=== PATIENT | male | born 1970 | race African-American/Black ===

== ENCOUNTER 2016-03-01 15:17 | Emergency (ER) | payer BC ==
[~2016-03-01] VITALS: Ht 175.3 cm; Wt 95.0 kg
[~2016-03-01 15:17] MED LIST: DILT120C49 PO; LISI-360 PO
[2016-03-01 15:21] VITALS: BP 235/126; PULSE 76; RESP 18; TEMP 98.4; O2SAT 98
[2016-03-01 15:31] VITALS: BP 221/120; PULSE 77
--- NOTE | 2016-03-01 15:50 | PD ---
HPI Chief Complaint: Hypertension Stated Complaint: POSS HIGH BLOOD PRESSURE Time Seen by Provider: 15:50 Travel History International Travel<30 days: No Contact w/Intl Traveler<30days: No Known affected area: No History of Present Illness HPI 45-year-old male with history of hypertension, presents to emergency department for evaluation of persistent hypertension, higher than usual with associated headache. Headache has been intermittent over the last couple weeks. Patient states he typically does get headache with his blood pressure is elevated. Patient is followed by IVETH Gruber and was on lisinopril and losartan. Now he takes losartan 100 mg by mouth for his blood pressure. Patient states he's been taking this as directed. He is in the process of finding a new medical provider. He states he does have an appointment with Dr. Campbell. Patient denies any other focal deficits or weakness. No chest pain or tightness. No difficulty breathing. He has no visual changes or disturbances. He has no other symptoms report. History Social History Alcohol Use: No Tobacco Use: No Allergies-Medications (Allergen,Severity, Reaction): Coded Allergies: No Known Allergies (Unverified , 09/22/14) Reported Meds & Prescriptions Reported Meds & Active Scripts Active Norvasc (Amlodipine Besylate) 5 Mg Tab 5 Mg PO DAILY Lisinopril 10 mg (Lisinopril) 10 Mg Tab 1 Tab PO DAILY Reported Diltiazem Cd 120 mg 120 Mg Cap 120 Mg PO BID Review of Systems Except as stated in HPI: all other systems reviewed are Neg Physical Exam Narrative GENERAL: Well-nourished well-developed male patient, ambulatory no acute distress SKIN: Warm and dry. HEAD: Atraumatic. Normocephalic. EYES: Pupils equal and round. No scleral icterus. No injection or drainage. ENT: No nasal bleeding or discharge. Mucous membranes pink and moist. NECK: Trachea midline. No JVD. CARDIOVASCULAR: Regular rate and rhythm. No murmur appreciated. RESPIRATORY: No accessory muscle use. Clear to auscultation. Breath sounds equal bilaterally. GASTROINTESTINAL: Abdomen soft, non-tender, nondistended. Hepatic and splenic margins not palpable. MUSCULOSKELETAL: No obvious deformities. No clubbing. No cyanosis. No edema. NEUROLOGICAL: Awake and alert. No obvious cranial nerve deficits. Motor grossly within normal limits. Normal speech. PSYCHIATRIC: Appropriate mood and affect; insight and judgment normal. Data Data Last Documented VS Vital Signs Date Time Temp Pulse Resp B/P Pulse Ox O2 Delivery O2 Flow Rate FiO2 03/01/16 18:27 80 20 168/102 99 03/01/16 15:21 98.4 Room Air Orders Complete Blood Count With Diff (03/01/16 15:51) Basic Metabolic Panel (Bmp) (03/01/16 15:51) Ct Brain W/O Iv Contrast(Rout) (03/01/16 ) Clonidine (Catapres) (03/01/16 17:00) Electrocardiogram (03/01/16 16:17) Labs Laboratory Tests Test 03/01/16 16:00 White Blood Count 5.2 TH/MM3 Red Blood Count 4.40 MIL/MM3 Hemoglobin 13.8 GM/DL Hematocrit 40.1 % Mean Corpuscular Volume 91.2 FL Mean Corpuscular Hemoglobin 31.3 PG Mean Corpuscular Hemoglobin 34.3 % Concent Red Cell Distribution Width 12.2 % Platelet Count 152 TH/MM3 Mean Platelet Volume 11.8 FL Neutrophils (%) (Auto) 50.6 % Lymphocytes (%) (Auto) 36.0 % Monocytes (%) (Auto) 6.4 % Eosinophils (%) (Auto) 5.9 % Basophils (%) (Auto) 1.1 % Neutrophils # (Auto) 2.7 TH/MM3 Lymphocytes # (Auto) 1.9 TH/MM3 Monocytes # (Auto) 0.3 TH/MM3 Eosinophils # (Auto) 0.3 TH/MM3 Basophils # (Auto) 0.1 TH/MM3 CBC Comment AUTO DIFF Differential Comment AUTO DIFF CONFIRMED Platelet Estimate NORMAL Platelet Morphology Comment ENLARGED Sodium Level 138 MEQ/L Potassium Level 4.0 MEQ/L Chloride Level 103 MEQ/L Carbon Dioxide Level 27.3 MEQ/L Anion Gap 8 MEQ/L Blood Urea Nitrogen 18 MG/DL Creatinine 1.24 MG/DL Estimat Glomerular Filtration 77 ML/MIN Rate Random Glucose 84 MG/DL Calcium Level 8.5 MG/DL [facility] Medical Decision Making Medical Screen Exam Complete: Yes Emergency Medical Condition: Yes Medical Record Reviewed: Yes Differential Diagnosis Hypertension essential versus secondary versus hypertensive urgency versus hypertensive crisis versus intracranial hemorrhage versus vasospasm versus migraine Narrative Course 45-year-old male presents to emergency department for evaluation of hypertension. Workup was initiated in triage. Lab work has resulted with no acute abnormality. Patient is still in triage. Review of his chart, he has been given clonidine 0.2 mg in the past with improvement in his blood pressure and symptoms. This is given to the patient. Upon reassessment, blood pressure has reduced and patient is verbalizing marked improvement in symptoms. Discussed the patient Dr. Chambers, and changing position. He recommends starting the patient on Norvasc and to follow-up with primary care provider. Patient agrees this plan of care. In review of chart, patient is also on lisinopril. I have instructed him to not take this however he states that he no longer takes it and only takes losartan. Diagnosis Primary Impression: Hypertension Qualified Code: I10 - Essential hypertension Referrals: Primary Care Physician Patient Instructions: General Instructions, Hypertension (ED) Additional Instructions: Follow-up with primary care provider Return immediately with any acute worsening of symptoms Med/Other Pt SpecificInfo: Prescription(s) given Scripts Amlodipine (Norvasc)5 Mg Tab5 Mg PO DAILY #30 TAB Ref 0 Prov:Missy Pelletier 03/01/16 Disposition: 01 DISCHARGE HOME Condition: Stable Missy Pelletier Mar 01, 2016 15:50
[2016-03-01 16:21] LABS: AUTOMATED NEUTROPHIL # 2.7 TH/MM3 (1.8-7.7); BASOPHIL # 0.1 TH/MM3 (0-0.2); BASOPHIL % 1.1 % (0.0-2.0); EOSINOPHIL # 0.3 TH/MM3 (0-0.4); EOSINOPHIL % 5.9 % (0.0-4.0); HEMATOCRIT 40.1 % (39.0-51.0); LYMPHOCYTE # 1.9 TH/MM3 (1.0-4.8); MEAN CELL VOLUME 91.2 FL (80.0-100.0); MEAN CORPUSCULAR HEMOGLOBIN 31.3 PG (27.0-34.0); MEAN CORPUSCULAR HGB CONC 34.3 % (32.0-36.0); MONO % 6.4 % (0.0-8.0); NEUT % 50.6 % (16.0-70.0); PLATELET COUNT 152 TH/MM3 (150-450); RED CELL DISTRIBUTION WIDTH 12.2 % (11.6-17.2); WHITE BLOOD COUNT 5.2 TH/MM3 (4.0-11.0)
[2016-03-01 16:27] LABS: HEMO FLAGS AUTO DIFF
[2016-03-01 16:49] LABS: BICARBONATE 27.3 MEQ/L (21.0-32.0)
[2016-03-01] MEDS ORDERED: cloNIDine HCL 0.2 MG TAB PO ONE (17:00)
[2016-03-01 17:10] LABS: PLATELET ESTIMATE SMEAR NORMAL (NORMAL); PLATELET MORPHOLOGY ENLARGED (NORMAL); SCAN/DIFF AUTO DIFF CONFIRMED
[2016-03-01 17:34] VITALS: BP 202/122; PULSE 87; RESP 16; O2SAT 99
--- NOTE | 2016-03-01 17:40 | RADRPT ---
EXAM DATE/TIME: 03/01/2016 17:04 [facility] COMPARISON: No previous studies available for comparison. INDICATIONS : Cephalgia with increased blood pressure. RADIATION DOSE: 44.14 CTDIvol (mGy) MEDICAL HISTORY : Cardiovascular disease. Hypertension. SURGICAL HISTORY : None. ENCOUNTER: Initial ACUITY: 1 day PAIN SCALE: 6/10 LOCATION: cranial TECHNIQUE: Multiple contiguous axial images were obtained of the head. Using automated exposure control and adj ustment of the mA and/or kV according to patient size, radiation dose was kept as low as reasonably a chievable to obtain optimal diagnostic quality images. FINDINGS: CEREBRUM: The ventricles are normal for age. No evidence of midline shift, mass lesion, hemorrhage or acute in farction. No extra-axial fluid collections are seen. POSTERIOR FOSSA: The cerebellum and brainstem are intact. The 4th ventricle is midline. The cerebellopontine angle i s unremarkable. EXTRACRANIAL: The visualized portion of the orbits is intact. SKULL: The calvaria is intact. No evidence of skull fracture. CONCLUSION: Normal examination for a patient of this age. Jamal Cruz MD on March 01, 2016 at 17:32 Board Certified Radiologist. This report was verified electronically.
[2016-03-01 18:27] VITALS: BP 168/102; PULSE 80; RESP 20; O2SAT 99
[2016-03-01] MEDS ORDERED: AMLO5 PO (18:53)
--- NOTE | 2016-03-01 20:11 | EKG ---
Date Performed: 03/01/2016 Time Performed: 16:17:08 PTAGE: 45 years EKG: Sinus rhythm VOLTAGE CRITERIA FOR LVH ABNORMAL ECG INTERPRETATION BASED ON A DEFAULT AGE OF 40 YEARS NO SIGNIFICA NT CHANGE FROM PRIOR ELECTROCARDIOGRAM. PREVIOUS TRACING : 09/22/2014 19.08 DOCTOR: Mo Zhou Interpretating Date/Time 03/01/2016 20:10:05
== END 2016-03-01 18:55 | disposition home or self-care (01) ==
LOC: NETRI 15:17
DX: I10 Essential (primary) hypertension (principal)
CPT/HCPCS: 70450; 80048; 85025; 93005